=== PATIENT | male | born 1985 | race Caucasian/White ===

== ENCOUNTER 2019-02-02 10:58 | Emergency (ER) | payer MEDICAID ==
[~2019-02-02] VITALS: Ht 180.3 cm; Wt 88.6 kg
[2019-02-02 11:01] VITALS: Ht 180.3 cm; Wt 88.6 kg
[2019-02-02] MEDS ORDERED: NEURONTIN 300300 MG PO (12:03)
[2019-02-02 12:30] VITALS: BP 144/80
[2019-02-14] MEDS ORDERED: NAPROSYN500 MG PO (10:58)
[2019-02-17 11:47] VITALS: Ht 180.3 cm; Wt 88.6 kg
== END 2019-02-02 12:30 | disposition home or self-care (01) ==
LOC: D.ER 10:58
DX: M25.521 Pain in right elbow (principal); M25.421 Effusion, right elbow

== ENCOUNTER 2019-02-15 14:21 | Emergency (ER) | payer MEDICAID ==
[~2019-02-15] VITALS: Ht 180.3 cm; Wt 87.7 kg
[~2019-02-15 14:21] MED LIST: NAPROSYN500 MG PO; NEURONTIN 300300 MG PO
[2019-02-15 14:47] VITALS: Ht 180.3 cm; Wt 87.7 kg
[2019-02-15] MEDS ORDERED: TORADOL10 MG PO (15:46)
[2019-02-15 16:04] VITALS: BP 126/74
[2019-02-17 11:47] VITALS: Ht 180.3 cm; Wt 87.7 kg
== END 2019-02-15 16:05 | disposition home or self-care (01) ==
LOC: D.ER 14:21
DX: T84.84XA Pain due to internal orthopedic prosthetic devices, implants and grafts, initial encounter (principal); M70.21 Olecranon bursitis, right elbow; S42.401S Unspecified fracture of lower end of right humerus, sequela; Y83.9 Surgical procedure, unspecified as the cause of abnormal reaction of the patient, or of later complication, without mention of misadventure at the time of the procedure

== ENCOUNTER 2019-02-17 11:15 | Day surgery (SDC) | payer MEDICAID ==
[~2019-02-17] VITALS: Ht 180.3 cm; Wt 88.5 kg
[~2019-02-17 11:15] MED LIST changes: +TORADOL10 MG PO
[2019-02-17 11:47] VITALS: BP 117/61; Ht 180.3 cm; Wt 88.5 kg
[2019-02-17] MEDS ORDERED: HYDROCODON-ACE1 EA10 PO (15:27)
--- NOTE | 2019-02-17 16:21 | NUR ---
MEETS ANESTHESIA DISCHARGE CRITERIA
--- NOTE | 2019-02-17 16:50 | NUR ---
1630 ARRIVED TO ROOM ASLEEP. APEARS COMFORTABLE BUT STATED HE WAS IN PAIN. FALLS BACK TO SLEEP EASILY. SUSAN DRESSING TO RIGHT ARM IN SLING. BLOCKED AND FINGERS NUMB. ICE TO RIGHT ARM. FINGERS WARM. RECIEVED A FULL LIQ TRAY AND ATE FAST. OR FRIEND AT BEDSIDE. IV W/O SWELLING NOTED. NO NAUSEA NOTED
--- NOTE | 2019-02-20 08:37 | OP ---
PATIENT NAME: KRIS PEPPER MEDICAL RECORD: [id number] :81 LOCATION:[facility] ADMISSION DATE: SURGEON: AGAPITO RODRIGUEZ MD DATE OF OPERATION: 02/17/2019 PREOPERATIVE DIAGNOSIS: Painful hardware of the right elbow with olecranon bursitis. POSTOPERATIVE DIAGNOSIS: Painful hardware of the right elbow with olecranon bursitis. PROCEDURE: 1. Olecranon bursectomy: 2. Removal of painful hardware. SURGEON: Agapito Rodriguez MD BRUSH HAND: Damon Bellamy. INTRAOPERATIVE COMPLICATIONS: Essentially none; however, the patient had stripped screw heads both from the index operation as well as excellent fixation for 10 years of the screws being in place -- titanium screws. Hardware was removed with the exception of 3 screws that were left flush to the bone. Midas Jovan was used during the case. OPERATIVE SUMMARY IN DETAIL: After obtaining the appropriate preoperative orthopedic surgery consent as well as anesthetic consultation, evaluation and clearance, the patient was brought to the operating room and placed on the operating table in a supine position. After general laryngeal mask airway was administered, tourniquet was placed about the proximal aspect of the right upper extremity. Right upper extremity was then prepped and draped in routine sterile fashion. The arm was elevated and exsanguinated, tourniquet was inflated to 250 mmHg. Curvilinear incision was utilized from the previous operation. It was taken down to the level of the bursa, which was found to have substantial bursitis. This was irrigated, cleansed, and bursal tissue was excised. The plate was then fully exposed. Some bony overgrowth was removed and then serial and sequential removal of screws under a great deal of difficulty was done. At this point, Midas Jovan was taken down, and the residual screw heads holding the plate in place were essentially burred off to allow for the plate to be removed. At this point, the wheel ally bit for the Midas Jovan was utilized to cut any residual protruding screw head down. Further smoothing was done of the bone. The posterior screw was cut flush with the bone. Final radiographs were taken and submitted to radiology for review. Copious irrigation was followed by closure using #1 Vicryl, 2-0 Vicryl, and 4-0 Ethilon done by Desean Bellamy. Sterile dressings were applied. Tourniquet was deflated. The patient was awakened and taken to the recovery room in stable condition. All final needle and sponge counts were correct. TRANSINT:[id number] Voice Confirmation ID: [id number] DOCUMENT ID: [id number] OPERATIVE REPORT [id number] KRIS PEPPER MD, AGAPITO IBARRA at 0837 CC: [id number] DICTATION DATE: 02/19/19 1345 OVERCOIL STEPPER: 02/19/19 2217 [facility] 02/17/[address] [id number]
== END 2019-02-17 17:30 | disposition home or self-care (01) ==
LOC: D.OPS 11:15 → D.PAN 16:00 → D.OPS 16:00
PROVIDERS: ATTEND Orthopaedic Surgery
DX: M70.21 Olecranon bursitis, right elbow (principal); T84.84XA Pain due to internal orthopedic prosthetic devices, implants and grafts, initial encounter; Y83.9 Surgical procedure, unspecified as the cause of abnormal reaction of the patient, or of later complication, without mention of misadventure at the time of the procedure

== ENCOUNTER 2019-04-04 17:55 | Emergency (ER) | payer MEDICAID ==
[~2019-04-04] VITALS: Ht 180.3 cm; Wt 88.6 kg
[~2019-04-04 17:55] MED LIST changes: +HYDROCODON-ACE1 EA10 PO
[2019-04-04 18:27] VITALS: BP 123/79; Ht 180.3 cm; Wt 88.6 kg
[2019-04-05] MEDS ORDERED: ULTRAM50 MG PO (09:00)
== END 2019-04-04 19:50 | disposition left against medical advice (07) ==
LOC: D.ER 17:55
DX: M79.601 Pain in right arm (principal)

== ENCOUNTER 2019-04-05 08:20 | Emergency (ER) | payer MEDICAID ==
[~2019-04-05] VITALS: Ht 180.3 cm; Wt 88.6 kg
[2019-04-05 08:23] VITALS: Ht 180.3 cm; Wt 88.6 kg
[2019-04-05] MEDS ORDERED: ULTRAM50 MG PO (09:00)
[2019-04-05 09:24] VITALS: BP 115/68
== END 2019-04-05 09:25 | disposition home or self-care (01) ==
LOC: D.ER 08:20
DX: S50.11XA Contusion of right forearm, initial encounter (principal); W22.8XXA Striking against or struck by other objects, initial encounter; Y93.9 Activity, unspecified; Y92.9 Unspecified place or not applicable; Y99.0 Civilian activity done for income or pay

== ENCOUNTER 2019-05-09 19:01 | Emergency (ER) | payer MEDICAID ==
[~2019-05-09] VITALS: Ht 180.3 cm; Wt 88.6 kg
[~2019-05-09 19:01] MED LIST changes: +ULTRAM50 MG PO
[2019-05-09 19:11] VITALS: Ht 180.3 cm; Wt 88.6 kg
[2019-05-09] MEDS ORDERED: EC-NAPROSYN500 MG PO (20:42)
[2019-05-09] MEDS ORDERED: PENICILLIN V P500 MG PO (20:42)
[2019-05-09 21:29] VITALS: BP 127/83
== END 2019-05-09 21:30 | disposition home or self-care (01) ==
LOC: D.ER 19:01
DX: K04.7 Periapical abscess without sinus (principal); K08.89 Other specified disorders of teeth and supporting structures

== ENCOUNTER 2019-05-30 19:52 | Emergency (ER) | payer SELFPAY ==
[~2019-05-30] VITALS: Ht 180.3 cm; Wt 86.4 kg
[~2019-05-30 19:52] MED LIST changes: +EC-NAPROSYN500 MG PO; +PENICILLIN V P500 MG PO
[2019-05-30 20:12] VITALS: Ht 180.3 cm; Wt 86.4 kg
[2019-05-30 22:17] VITALS: BP 125/78
== END 2019-05-30 22:17 | disposition home or self-care (01) ==
LOC: D.ER 19:52
DX: K04.7 Periapical abscess without sinus (principal); K08.89 Other specified disorders of teeth and supporting structures